=== PATIENT | male | born 1960 | race Caucasian/White ===

== ENCOUNTER 2021-09-14 15:21 | Inpatient (IN) | payer OTHER ==
[~2021-09-14] VITALS: Ht 152.4 cm; Wt 86.2 kg
[~2021-09-14 15:21] MED LIST: AMBEREN; BENADRYL25 MG PO; CELEBREX 200 M200 MG PO; COQ-10100 MG PO; CRESTOR; CRESTOR20 MG PO; FLOMAX PO; LOVAZA1000 MG PO; METOPROLOL TART25 MG PO; NORCO 5-325 TA1 EACH PO; NORCO 7.5-3251 EACH PO; PERCOCET 5-3251 EACH PO; PREVACID15 MG PO; TRICOR145 MG PO; VITAMIN D33000 UNIT PO; ZOFRAN ODT4 MG PO
[2021-09-14 15:23] VITALS: BP 183/90
[2021-09-14 16:11] LABS: ABSOLUTE NEUTROPHILS 3.3 thou/uL (1.4-8.2); BASOPHILS 0.6 % (0.0-2.0); EOSINOPHILS 1.1 % (0.0-3.0); HEMATOCRIT 39.6 % (42.0-52.0); HEMOGLOBIN 13.4 gm/dL (14.0-18.0); LYMPHOCYTES 20.7 % (24.0-44.0); MCV 91.3 fL (80.0-100.0); MONOCYTES 12.6 % (1.0-8.0); PLATELET COUNT 187 thou/uL (150-400); RBC 4.33 mil/uL (4.50-6.00)
[2021-09-14 16:22] LABS: CALCIUM 9.1 mg/dL (8.5-10.1); CREATININE 1.3 mg/dL (0.7-1.3); POTASSIUM 4.2 mmol/L (3.5-5.1)
[2021-09-14 16:45] LABS: URINE BILIRUBIN NEGATIVE (Negative); URINE BLOOD 3+ (Negative); URINE CLARITY CLEAR; URINE COLOR YELLOW; URINE GLUCOSE-RANDOM* NEGATIVE (Negative); URINE KETONES NEGATIVE (Negative); URINE LEUKOCYTES-REFLEX NEGATIVE (Negative); URINE NITRITE-REFLEX NEGATIVE (Negative); URINE PROTEIN (DIPSTICK) TRACE (Negative); URINE SPECIFIC GRAVITY >= 1.030 (1.005-1.035); URINE UROBILINOGEN 0.2 E.U./dl (0.2-1.0)
[2021-09-14 16:53] LABS: SQUAMOUS None Seen /LPF (0-3)
[2021-09-14 16:54] LABS: BACTERIA-REFLEX 1-9 Few /HPF (None Seen); CALCIUM OXALATE 4-10 Moderate /LPF (None Seen); CASTS None Seen /LPF (None Seen); CRYSTALS None Seen /LPF (None Seen); URINE RBC >20 Many /HPF (NONE SEEN); URINE WBC-REFLEX 0-5 Rare /HPF (0-5)
[2021-09-14 19:35] VITALS: BP 145/81
[2021-09-14 20:20] VITALS: BP 149/86
[2021-09-15 06:14] LABS: HEMATOCRIT 35.6 % (42.0-52.0); HEMOGLOBIN 12.2 gm/dL (14.0-18.0); MCH 31.7 pg (26.0-34.0); MCHC 34.1 g/dL (28.0-37.0); MCV 92.8 fL (80.0-100.0); RBC 3.84 mil/uL (4.50-6.00); RDW 13.1 % (10.5-14.5); WBC 3.3 thou/uL (4.0-11.0)
--- NOTE | 2021-09-15 06:20 | NUR ---
ADMITTED PT TO UNIT AT 1999. PT IS AOX4, HAS NO AMBULATORY ISSUES, VITAL SIGNS STABLE, ONLY ISSUE IS A 5.7 MM CALCULUS. PLAN TO HAVE RENAL STENT PUT IN IN THE AM. NPO AT MIDNIGHT, BLADDER SCAN SHOWS NO RETENTION. PT COMPLAINS OF NO PAIN THROUGHOUT THE NIGHT, SAYING THE KETOROLAC GIVEN IN ER HAS HIS PAIN COMPLETELY ELIMINATED. RESTING IN ROOM NOW, READY FOR PROCEDURE. WILL CONTINUE TO MONITOR.
[2021-09-15 06:38] LABS: CALCIUM 8.4 mg/dL (8.5-10.1); CREATININE 1.1 mg/dL (0.7-1.3)
[2021-09-15 07:46] VITALS: BP 130/76
[2021-09-15] MEDS ORDERED: FLOMAX0.4 MG PO (10:22)
[2021-09-15] MEDS ORDERED: NORCO5 PO (13:23)
[2021-09-15 13:41] VITALS: BP 130/76
--- NOTE | 2021-09-15 14:24 | NUR ---
Assumed pt care at 7am.Pt in and out of bed independently.Assessment completed vss. Pt wanted to go home after breakfast if possible.Dr Bustamante and Kaley pro from urology here,order noted. Pt tolerated meds and diet. Dc order noted and summary compile and reviewed with pt. Rx faxed to pt pharmacy. At 1400,piv and saline lock dc'd. Pt dc home with strainer for urine and specimen cup.
== END 2021-09-15 14:36 | disposition home or self-care (01) | DRG 694 ==
LOC: ER 15:21 → 4W 16:41 → EROBS 16:41 → 4W 19:45
PROVIDERS: Nurse Practitioner; ADMIT Internal Medicine; ATTEND Internal Medicine
DX: N13.2 Hydronephrosis with renal and ureteral calculous obstruction (principal); D32.0 Benign neoplasm of cerebral meninges; I10 Essential (primary) hypertension; I25.10 Atherosclerotic heart disease of native coronary artery without angina pectoris; E11.9 Type 2 diabetes mellitus without complications; E78.5 Hyperlipidemia, unspecified; Z20.822 Contact with and (suspected) exposure to COVID-19; Z90.49 Acquired absence of other specified parts of digestive tract; Z88.1 Allergy status to other antibiotic agents; Z79.899 Other long term (current) drug therapy; Z87.442 Personal history of urinary calculi; Z23 Encounter for immunization
CPT/HCPCS: 10040